=== PATIENT | male | born 2000 | race African-American/Black ===

== ENCOUNTER 2021-09-07 13:13 | Emergency (ER) | payer BC ==
[~2021-09-07] VITALS: Ht 190.5 cm; Wt 86.2 kg
[2021-09-07 13:41] LABS: URINE BLOOD NEGATIVE (Negative); URINE CLARITY CLEAR; URINE COLOR YELLOW; URINE GLUCOSE-RANDOM* NEGATIVE (Negative); URINE KETONES 3+ (Negative); URINE LEUKOCYTES-REFLEX NEGATIVE (Negative); URINE NITRITE-REFLEX NEGATIVE (Negative); URINE PROTEIN (DIPSTICK) NEGATIVE (Negative); URINE SPECIFIC GRAVITY 1.025 (1.005-1.035)
[2021-09-07 13:55] LABS: ICTOTEST (BILI CONFIRMATORY) Negative (Negative); URINE BILIRUBIN NEGATIVE (Negative); URINE REDUCING SUBSTANCE NEGATIVE
[2021-09-07 14:11] LABS: HEMATOCRIT 46.9 % (42.0-52.0); HEMOGLOBIN 15.7 gm/dL (14.0-18.0); MCH 30.9 pg (26.0-34.0); MCHC 33.6 g/dL (28.0-37.0); MCV 92.2 fL (80.0-100.0); RBC 5.09 mil/uL (4.50-6.00); RDW 13.5 % (10.5-14.5); WBC 13.5 thou/uL (4.0-11.0)
[2021-09-07 14:30] LABS: CALCIUM 10.1 mg/dL (8.5-10.1); CREATININE 1.4 mg/dL (0.7-1.3); POTASSIUM 3.4 mmol/L (3.5-5.1)
[2021-09-07 14:36] LABS: ALBUMIN 4.4 g/dL (3.4-5.0); TOTAL BILIRUBIN 1.9 mg/dL (0.2-1.0); TOTAL PROTEIN 7.9 g/dL (6.4-8.2)
[2021-09-07] MEDS ORDERED: PHENERGAN 25 MG25 M1 PO (18:09)
[2021-09-07 20:30] VITALS: BP 114/68
--- NOTE | 2021-09-08 07:07 | EKG ---
[address] [address] ELECTROCARDIOGRAM REPORT Name: GUDELIA YEUNG Room #: DEP NICOLE Nassar#: [id number] Admission: 09/07/21 Attend Phys: Discharge: 09/07/21 Date of : 89 Report #: [id number] [facility] ED Test Date: 2021-09-07 Test Time: 18:38:50 Pat Name: GUDELIA YEUNG Department: Room: Gender: Bingo Floater: : 2000 Requested By: Alexandria Newsome Order Number: [id number] MD: Valerio Ca Measurements Intervals [place] Rate: 68 P: 74 [place]: 135 QRS: 82 QRSD: 90 T: 36 QT: 389 QTc: 414 Interpretive Statements Sinus rhythm No previous ECG available for comparison Electronically Signed On 09-08-2021 7:07:41 [employer] by Valerio Ca [email or web address] <ELECTRONICALLY SIGNED> By: Valerio Ca MD, [facility] 09/08/21 [id number] 1838 Valerio Ca MD, FACC /EPI
== END 2021-09-07 20:30 | disposition home or self-care (01) ==
LOC: ER 13:13
PROVIDERS: Nurse Practitioner Family
DX: R11.2 Nausea with vomiting, unspecified (principal); Z20.822 Contact with and (suspected) exposure to COVID-19; E86.0 Dehydration